=== PATIENT | male | born 1965 | race Asian ===

== ENCOUNTER 2019-03-28 07:56 | Day surgery (SDC) | payer BC ==
[2019-03-28] MEDS ORDERED: FENTAnyl 50 MCG/ML VIAL (09:59)
[2019-03-28] MEDS ORDERED: MIDAZOLAM 1 MG/ML 2 ML INJ ×2 (09:59)
== END 2019-03-28 15:29 | disposition home or self-care (01) ==
LOC: GIL 07:56
DX: Z12.11 Encounter for screening for malignant neoplasm of colon (principal); D12.4 Benign neoplasm of descending colon; I10 Essential (primary) hypertension
CPT/HCPCS: 45385; 88305